=== PATIENT | male | born 1990 | race African-American/Black ===

== ENCOUNTER 2021-05-22 09:04 | Emergency (ER) | payer OTHER, SELFPAY ==
[2021-05-22] VITALS (68 sets, daily range): BP systolic 110–144; BP diastolic 58–98; PULSE 68–107; RESP 3–30; TEMP 36.3–36.6; O2SAT 93–100
--- NOTE | ~2021-05-22 | CT_ITS ---
EXAMINATION: CT brain wo con DATE: 05/22/2021 09:54 INDICATION: Seizure. Vomiting. Arteriovenous malformation. TECHNIQUE: Computed tomography (CT) of the head was performed without intravenous contrast. The mA wa s adjusted according to patient size. Iterative reconstruction technique was employed. The dose-lengt h product was 605.33 mGy-cm. COMPARISON: None FINDINGS: There is no intracranial hemorrhage, acute infarction, or abnormal intracranial mass lesion . There are enlarged vessels in left sylvian fissure and the overlying the left cerebral hemisphere. The ventricles are normal in size. There is 3 mm rightward midline shift. There is mild mucosal thick ening in the paranasal sinuses. The mastoid air cells are normal. IMPRESSION: 1. 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 Reviewed, dictated and finalized at location A. ECT MANAGER/TEAM COACH IMPRESSION: 1. Enlarged vessels in the left sylvian fissure and overlying the left cerebral hemisphere, consistent with an arterial venous malformation.
--- NOTE | ~2021-05-22 | XR_ITS ---
EXAMINATION: XR chest 1V portable DATE: 05/22/2021 09:27 INDICATION: Cough. Vomiting. Seizure. TECHNIQUE: A single frontal view of the chest was obtained. COMPARISON: Chest 2 views 06/06/2011 FINDINGS: The chest demonstrates clear lungs without pneumonia, pleural effusion, or pneumothorax. Th e heart size is normal. IMPRESSION: 1. No acute cardiopulmonary disease. Reviewed, dictated and finalized at location A. LE REAMER OPERATOR
--- NOTE | ~2021-05-22 | CT_ITS ---
EXAMINATION: CT brain wo con DATE: 05/22/2021 14:09 INDICATION: Seizure. TECHNIQUE: Computed tomography (CT) of the head was performed without intravenous contrast. The mA wa s adjusted according to patient size. Iterative reconstruction technique was employed. The dose-lengt h product was 605.33 mGy-cm. COMPARISON: Head CT 9:46 AM FINDINGS: There is no intracranial hemorrhage, acute infarction, or abnormal intracranial mass lesion . Again seen are enlarged vessels in the left sylvian fissure and overlying the left cerebral hemisph ere. The ventricles are normal in size. There is 3 mm rightward midline shift without change. The orb its are normal. There is mild mucosal thickening in the paranasal sinuses. The mastoid air cells are normal. IMPRESSION: 1. Unchanged enlarged vessels in the left sylvian fissure and overlying the left cerebral hemisphere, consistent with an arteriovenous malformation. Reviewed, dictated and finalized at location A. SR IMPRESSION: 1. Unchanged enlarged vessels in the left sylvian fissure and overlying the lef t cerebral hemisphere, consistent with an arteriovenous malformation.
[2021-05-22 09:36] LABS: Basophils Percent Auto 0.2 % (0.2-1.2); Eosinophils Absolute Auto 0.1 K/mm3 (0-0.3); Eosinophils Percent Auto 0.7 % (0-4.4); Hematocrit 48.7 % (42.0-52.0); Hemoglobin 16.4 g/dL (14.0-18.0); Immature Granulocyte Absolute 0.04 K/mm3 (0.00-0.031); Immature Granulocyte Percent A 0.3 % (0-0.5); Lymphocytes Absolute Auto 0.81 K/mm3 (0.9-3.2); Lymphocytes Percent Auto 6.1 % (18.3-44.2); Mean Corpuscular HGB Conc 33.7 g/dl (32-36); Mean Corpuscular Hemoglobin 30.4 pg (26-34); Mean Corpuscular Volume 90.2 fl (80-100); Monocytes Absolute Auto 0.5 K/mm3 (0.1-0.6); Monocytes Percent Auto 3.4 % (2.6-8.5); Neutrophils Absolute Auto 11.9 K/mm3 (1.3-6.7); Neutrophils Percent Auto 89.3 % (45.5-73.1); Platelet Count Result 264 k/mm3 (150-375); Red Cell Distribution Width 12.8 % (11.5-14.5); White Blood Count 13.3 K/mm3 (4.5-10.0)
[2021-05-22] MEDS: levETIRAcetam IV 750 MG in DEXTROSE 5% 100 ML 430 MG IVPB ×2 (09:37→21:00)
--- NOTE | 2021-05-22 09:38 | ED.SEIZURE ---
HPI - Seizure General Chief Complaint: Seizure Stated Complaint: seizure Time Seen by Provider: 05/22/21 09:15 Source: patient and family Mode of arrival: EMS Limitations: no limitations History of Present Illness HPI Narrative: This is a 30 year old male that presents to the ER for seizures. Does report history of seizures. Sees neurology at [facility]. He has been out of his Keppra for the last 2 days. He went to dinner last night with his and was feeling fine. He started to feel ill in the middle of the night. He went to the bathroom and vomited. Reports he also had diarrhea. His reports she witnessed a tonic clonic seizure at that time around 3AM that lasted a couple of minutes. EMS was called at that time. He refused further treatment and transport. reports she found him again to be in a post-ictal state before calling EMS this time and bringing him in for evaluation. He reports a headache and fatigue. His reports he has a history of AVM. Patient denies vision changes, or focal numbness or weakness. Related Data Home Medications Medication Instructions Recorded Confirmed levetiracetam [Keppra] 750 mg PO BID 05/22/21 Allergies Allergy/AdvReac Type Severity Reaction Status Date / Time No Known Allergies Allergy Mild Verified 05/22/21 09:11 Review of Systems Review of Systems: CONSTITUTIONAL: Denies fever EYES: Denies visual changes CARDIOVASCULAR: Denies chest pain RESPIRATORY: Denies dyspnea. GASTROINTESTINAL: Reports nausea, vomiting and diarrhea. Denies abdominal pain NEUROLOGIC: Reports headache. Denies numbness, or weakness. All systems reviewed & are unremarkable except as noted in HPI and below PMFSH Past Medical History Medical History (Updated 05/23/21 @ 00:00 by Juan Carlos Levine) History of seizures Social History Social History (Updated 05/22/21 @ 09:45 by Silvia Vidales PA-C) Substance use: current Substance use type: marijuana Exam Narrative: GENERAL: Well-appearing, well-nourished, and in no acute distress. HEAD: Normocephalic, atraumatic. EYES: PERRLA and EOMI. ENT: Nares clear, no rhinorrhea or epistaxis. Mucous membranes moist. Oropharynx without tonsillar hypertrophy exudate or other lesions. Bilateral TMs pearly joe non-bulging NECK: Supple. No adenopathy or masses. CHEST: Clear to auscultation. No respiratory distress. No wheezes rales or rhonchi HEART: Regular rate and rhythm. No murmur heard. Normal peripheral pulses. ABDOMEN: Soft, nontender, nondistended, normal active bowel sounds. EXTREMITIES: Normal range of motion. No edema. Strength equal in bilateral upper and lower extremities (5/5) SKIN: Warm, dry, no rash. NEURO: No focal deficits. Alert and oriented x3. Cranial nerves II through XII grossly intact PSYCH: Normal mood and affect Course Consultations Consultation #1: Spoke with Dr. Sanitzo with [facility] who recommends patient be transferred for further evaluation. Patient will be a direct admit. Would like patient's blood pressure to be monitored and Keppra continued. We will repeat scan of his brain in the next 3 to 4 hours. Date: 05/22/21 Vital Signs Vital signs: Vital Signs Temperature 97.8 F 05/22/21 09:02 Pulse Rate 105 H 05/22/21 09:02 Respiratory Rate 14 05/22/21 09:02 Blood Pressure 134/84 05/22/21 09:02 Pulse Oximetry 100 05/22/21 09:02 Temperature 97.4 F L 05/22/21 21:32 Pulse Rate 73 05/22/21 21:32 Respiratory Rate 16 05/22/21 21:32 Blood Pressure 124/72 05/22/21 21:32 Pulse Oximetry 100 05/22/21 21:32 MDM - Seizure MDM Narrative Medical decision making narrative: Patient presents to the emergency department for vomiting, headache and seizures. Does have known history of seizures and is on Keppra 750 mg twice daily for this. He ran out of his Keppra on Friday. He also has known history of AVM. Follows with neurology at [facility]. He is afebrile and nontoxic-appearing. A lit
[2021-05-22] MEDS: PANTOPRAZOLE SODIUM IV 40 MG VIAL IV PUSH (09:59)
[2021-05-22] MEDS: ONDANSETRON INJ 4 MG/2 ML VIAL IV PUSH (09:59)
[2021-05-22 10:17] LABS: Glucose Point of Care 121 mg/dl (65-105)
[2021-05-22 10:22] LABS: Alanine Aminotransferase 21 U/L (4-50); Albumin Level 4.8 g/dL (3.5-5.1); Alkaline Phosphatase 58 U/L (38-126); Anion Gap 9 mmol/L (8-16); Aspartate Amino Transferase 31 U/L (17-59); Bilirubin,Total 0.7 mg/dL (0.2-1.3); Blood Urea Nitrogen 18 mg/dL (9-20); Calcium 9.9 mg/dL (8.4-10.2); Carbon Dioxide 24 mmol/L (22-30); Chloride 106 mmol/L (98-107); Estimated CRCL calculation 94 ml/min; Estimated Glomerular Filt Rate > 60; Glucose 121 mg/dL (65-110); Lipase 146 U/L (23-300); Potassium 4.5 mmol/L (3.4-5.0); Sodium 139 mmol/L (137-145)
[2021-05-22 10:37] LABS: Partial Thromboplastin Time 24.7 SECONDS (22.3-36.8); Prothrombin Time 13.2 Seconds (11.1-14.7)
[2021-05-22 11:10] LABS: Ethanol < 10 mg/dL (<10)
[2021-05-22 11:47] LABS: SARS-CoV-2 RNA PCR Negative
[2021-05-22 14:29] LABS: Add Urine Microscopic? YES; Appearance Urine Clear (Clear); Bilirubin Urine Negative (Negative); Blood Urine Negative (Negative); Color Urine Yellow (Yellow); Glucose Urine UA Negative (Negative); Ketones Urine 1+ mg/dL (Negative); Leukocyte Esterase Ur Negative LEU/UL (Negative); Nitrate Urine Negative (Negative); Protein Urine Negative (Negative); RBC Urine 0-2 /hpf (0-2); Specific Grav Ur 1.026 (1.001-1.035); Urobilinogen Urine Negative mg/dL (<2.0); WBC Urine 0-3 /hpf
[2021-05-22 14:47] LABS: Amphetamine Screen Urine Negative (Negative); Barbiturate Screen Urine Negative (Negative); Benzodiazepines Screen Urine Negative (Negative); Cannabinoid Screen Urine Positive (Negative); Cocaine Screen Urine Negative (Negative); Methadone Screen Urine Negative (Negative); Opiate Screen Urine Negative (Negative); Phencyclidine Screen Urine Negative (Negative)
--- NOTE | 2021-05-22 18:33 | PC.NURSE ---
called [facility] for bed update, no bed at this time. [id number]
== END 2021-05-22 21:45 | disposition short-term general hospital (02) ==
PROVIDERS: Physician Assistant; Emergency Provider Emergency Medicine; PCP Nurse Practitioner Family
DX: R56.9 Unspecified convulsions (principal); Q28.2 Arteriovenous malformation of cerebral vessels; Z20.822 Contact with and (suspected) exposure to COVID-19
CPT/HCPCS: 36415; 70450; 71045; 80053; 80307; 81001; 82948; 83690; 85025; 85610; 85730; 87804; 96365; 96366; 96367; 96375; 99285; C9113; C9803; J0131; J1953; J2405; U0003; U0005

== ENCOUNTER 2024-01-11 21:42 | Emergency (ER) | payer OTHER, SELFPAY ==
[2024-01-11 22:17] VITALS: BP 128/80; PULSE 76; RESP 18; TEMP 36.4; O2SAT 99
--- NOTE | 2024-01-11 22:53 | PC.NURSE ---
Pt spouse Earl called the ER to see how the patient was doing and is worried that the patient will be discharged home while being aggressive and she is worried about the safety of her and their children. Reassured the patients that we would contact her with updates throughout the night. earl - phone number: [phone].
--- NOTE | 2024-01-11 23:15 | PC.NURSE ---
Pt attempted to elope. Brought back by PD and security. Pt did walk himself back, but refusing all testing and yelling at staff. Pt not willing to listen to anyone's instructions initially. Dr Buitrago at bedside with pt, however pt getting increasingly verbally aggressive. Pt eventually did listen to instruction from this RN, however still unwilling to cooperate with any testing. Security standing at doorway.
--- NOTE | 2024-01-11 23:43 | PC.NURSE ---
This Rn attempted to get lab work and EKG done on pt. Pt is refusing all medical clearance work up. Pt was told the protocols of the Ed after asking why we need these things done. Pt is still refusing work up. Dr. Muniz and dray driver notified.
--- NOTE | 2024-01-12 00:16 | ED.GENADULT ---
HPI - General Adult General Chief complaint: Psychiatric Symptoms <Kee Buitrago MD - Last Filed: 01/12/24 06:01> Stated complaint: SI <Kee Buitrago MD - Last Filed: 01/12/24 06:01> Time Seen by Provider: 01/11/24 22:07 <Kee Buitrago MD - Last Filed: 01/12/24 06:01> History of Present Illness HPI narrative: Patient is a 33-year-old gentleman who presents emergency department with chief complaint of mental health evaluation patient was brought in by the police after being at a bar and stating that he does not want to be around anymore the patient was telling the police to shoot him patient reports that he has been having a lot of marital issues and does have firearms at home <Kee Buitrago MD - Last Filed: 01/12/24 06:01> Related Data Home medications: Home Medications Medication Instructions Recorded Confirmed levetiracetam 750 mg tablet 750 mg PO BID 05/22/21 (Keppra) <Kee Buitrago MD - Last Filed: 01/12/24 06:01> Allergies/adverse reactions: Allergies Allergy/AdvReac Type Severity Reaction Status Date / Time No Known Allergies Allergy Mild Verified 05/22/21 09:11 <Kee Buitrago MD - Last Filed: 01/12/24 06:01> Review of Systems Review of Systems: A 10 system review of systems was completed on the patient and is negative except for what is stated in the HPI. Nursing and ancillary documentation was reviewed. <Kee Buitrago MD - Last Filed: 01/12/24 06:01> [facility] Past Medical History Medical History: Medical History History of seizures <Kee Buitrago MD - Last Filed: 01/12/24 06:01> Social History Social History: Social History Substance use: current Substance use type: marijuana <Kee Buitrago MD - Last Filed: 01/12/24 06:01> Exam Narrative: GENERAL: Well-appearing, well-nourished, and in no acute distress. HEAD: Normocephalic, atraumatic. EYES: PERRLA and EOMI. ENT: Nares clear, no rhinorrhea or epistaxis. Mucous membranes moist. NECK: Supple. CHEST: Clear to auscultation. No respiratory distress. HEART: Regular rate and rhythm. No murmur heard. Normal peripheral pulses. ABDOMEN: Soft, nontender, nondistended, normal active bowel sounds. EXTREMITIES: Normal range of motion. No edema. SKIN: Warm, dry, no rash. NEURO: No focal deficits. Alert and oriented x3. PSYCH: Depressed mood and affect known cooperative will not listen to discussion <Kee Buitrago MD - Last Filed: 01/12/24 06:01> Course Course Emergency Course: Patient continues to deny any homicidal or suicidal ideation. Patient clarified that when he made that statement he was wishing that his divorce or/separation would be over, he was not wishing his life would be over. Patient continues to deny any homicidal or suicidal ideation. Patient was evaluated by the crisis counselors and patient is signing a safety plan. <Leon Pace MD - Last Filed: 01/12/24 18:07> Vital Signs Vital signs: Vital Signs Temperature 97.6 F 01/11/24 22:17 Pulse Rate 76 01/11/24 22:17 Respiratory Rate 18 01/11/24 22:17 Blood Pressure 128/80 01/11/24 22:17 Pulse Oximetry 99 01/11/24 22:17 Oxygen Delivery Room Air 01/11/24 22:17 Temperature 97.6 F 01/11/24 22:17 Pulse Rate 77 01/12/24 05:49 Respiratory Rate 18 01/12/24 05:49 Blood Pressure 129/72 01/12/24 05:49 Pulse Oximetry 99 01/12/24 05:49 Oxygen Delivery Room Air 01/11/24 22:17 <Kee Buitrago MD - Last Filed: 01/12/24 06:01> Vital Signs Temperature 97.6 F 01/11/24 22:17 Pulse Rate 76 01/11/24 22:17 Respiratory Rate 18 01/11/24 22:17 Blood Pressure 128/80 01/11/24 22:17 Pulse Oximetry 99 01/11/24 22:17 O
--- NOTE | 2024-01-12 01:15 | PC.NURSE ---
Explained to pt again what was needed to be medically cleared and seen by crisis. Pt continues to refuse.
--- NOTE | 2024-01-12 02:52 | PC.NURSE ---
Addendum entered by Ruth Canales RN 01/12/24 02:52: ERP aware. Original Note: Pt continues to refuse lab testing.
[2024-01-12 05:49] VITALS: BP 129/72; PULSE 77; RESP 18; O2SAT 99
--- NOTE | 2024-01-12 08:12 | PC.NURSE ---
Pt refusing to have lab, urine collected, EKG, vitals or breakfast. States he doesn't know why he has to have blood drawn and I just want to leave RN informed pt the quickest to get discharge is to cooperate, so that EDMD can review results and make dispo decision. Pt continues to refuse. States Look at me, do I look unhealthy? No I'm not going to do it Pt denies S/I or H/I. Dr. Pace informed.
== END 2024-01-12 10:30 | disposition home or self-care (01) ==
PROVIDERS: Emergency Provider Emergency Medicine; PCP Nurse Practitioner Family
DX: Z04.6 Encounter for general psychiatric examination, requested by authority (principal)
CPT/HCPCS: 99284